=== PATIENT | male | born 1985 | race Two or more races ===

== ENCOUNTER 2017-05-09 22:26 | Emergency (ER) | payer MEDICAID ==
[~2017-05-09] VITALS: Ht 175.3 cm; Wt 103.0 kg
[2017-05-09 23:29] VITALS: BP 146/87
== END 2017-05-10 04:11 | disposition left against medical advice (07) ==
LOC: ER 22:31
DX: R94.31 Abnormal electrocardiogram [ECG] [EKG] (principal); Z53.21 Procedure and treatment not carried out due to patient leaving prior to being seen by health care provider
CPT/HCPCS: 93005